=== PATIENT | male | born 1945 | race African-American/Black ===

== ENCOUNTER 2016-08-03 09:45 | Emergency (ER) | payer OTHER, MEDICARE ==
[~2016-08-03] VITALS: Ht 172.7 cm; Wt 75.0 kg
[2016-08-03 12:14] VITALS: BP 124/71
== END 2016-08-03 12:15 | disposition home or self-care (01) ==
LOC: ER 09:59
DX: S80.02XA Contusion of left knee, initial encounter (principal); S60.222A Contusion of left hand, initial encounter; E11.9 Type 2 diabetes mellitus without complications; I11.9 Hypertensive heart disease without heart failure; I25.2 Old myocardial infarction; Z95.0 Presence of cardiac pacemaker; W01.0XXA Fall on same level from slipping, tripping and stumbling without subsequent striking against object, initial encounter; Y93.01 Activity, walking, marching and hiking; Y92.521 Bus station as the place of occurrence of the external cause; Y99.8 Other external cause status
CPT/HCPCS: 73130; 73562; 99284

== ENCOUNTER 2022-08-23 10:37 | Emergency (ER) | payer BC, OTHER ==
[~2022-08-23] VITALS: Ht 175.3 cm; Wt 69.0 kg
[2022-08-23 10:40] VITALS: BP 142/84
[2022-08-23] MEDS ORDERED: ACET-2708 MT (11:21)
[2022-08-23] MEDS ORDERED: ACETAMINOPHEN 325MG TABLET PO ONE (11:30)
== END 2022-08-23 12:17 | disposition home or self-care (01) ==
LOC: ER 10:37
DX: M79.661 Pain in right lower leg (principal); I25.2 Old myocardial infarction; I10 Essential (primary) hypertension
CPT/HCPCS: 99283